=== PATIENT | female | born 1970 | race Caucasian/White ===

== ENCOUNTER 2018-05-31 17:27 | Inpatient (IN) | payer MEDICARE ==
[2018-05-31] MEDS ORDERED: methylPREDNISolone SOD SUCCI 125 MG/2 ML VIAL IV STA (17:46)
[2018-05-31] MEDS ORDERED: SODIUM CHLORIDE 0.9% 1,000 ML IV STA ×2 (17:46)
[2018-05-31] MEDS ORDERED: SODIUM CHLORIDE 0.9% 500 ML 500 ML IV STA (17:46)
[2018-05-31] MEDS ORDERED: AZITHROMYCIN 500 MG in SODIUM CHLORIDE 0.9% 250 ML IVPB STA (17:46)
[2018-05-31] MEDS ORDERED: IPRATROPIUM 0.5 MG/2.5 ML NEBU INHALATION STA (17:46)
[2018-05-31] MEDS ORDERED: ALBUTEROL NEBULIZED 2.5 MG/3 ML INHALATION STA (17:46)
[2018-05-31] MEDS ORDERED: IBUPROFEN 600 MG TAB PO STA (17:47)
[2018-05-31] MEDS ORDERED: ACETAMINOPHEN TAB 325 MG TAB PO STA (17:47)
--- NOTE | 2018-05-31 17:47 | ED ---
SOB HPI - General Chief Complaint: Shortness of Breath Stated Complaint: SARAH Source: patient, RN notes reviewed, old records reviewed Mode of arrival: EMS Limitations: no limitations - History of Present Illness Initial Comments: This is a 48-year-old female the ER for evaluation of fever cough congestion chest pain. No history of COPD, patient states her COPD is progressively worsening. Increased cough and congestion. No fevers, no known sick contacts. MD Complaint: shortness of breath, cough -: days(s) Severity: mild Severity scale (1-10): 3 Consistency: constant Improves With: rest Worsens With: exertion Known History Of: COPD Context: recent URI Associated Symptoms: fever, cough Treatments Prior to Arrival: none - Related Data Home Medications Medication Instructions Recorded Confirmed ARIPiprazole IM SYRINGE [Abilify 400 mg IM Q28D 05/31/18 05/31/18 Maintena Syringe] Albuterol Sulfate [Proair Hfa] 1 - 2 puff INHALATION RT-Q6H 05/31/18 05/31/18 FLUoxetine HCL [PROzac] 60 mg PO DAILY 05/31/18 05/31/18 Fluticasone/Salmeterol [Advair 1 inhalation PO RT-BID 05/31/18 05/31/18 250-50 Diskus] Ipratropium-Albuterol Nebulize 3 ml INHALATION RT-DAILY 05/31/18 05/31/18 [Duoneb 0.5 mg-3 mg/3 ml Soln] Levothyroxine Sodium [Synthroid] 25 mcg PO DAILY 05/31/18 05/31/18 Multivitamins, Thera [Multivitamin 1 tab PO DAILY 05/31/18 05/31/18 (formulary)] Prazosin HCl 2 mg PO BID 05/31/18 05/31/18 Prazosin [Minipress] 1 mg PO BID 05/31/18 05/31/18 Tiotropium 18 Mcg/Puff [Spiriva] 1 puff INHALATION RT-DAILY 05/31/18 05/31/18 busPIRone HCL 30 mg PO BID 05/31/18 05/31/18 Phenytoin Sodium Extended 200 mg PO BID 06/01/18 06/01/18 [Dilantin] hydrOXYzine PAMOATE 100 mg PO TID 06/01/18 06/01/18 Previous Rx's Medication Instructions Recorded Azithromycin [Zithromax] 500 mg PO DAILY@1800 #3 tab 06/03/18 predniSONE 10 mg PO DAILY #30 tab 06/03/18 Allergies Allergy/AdvReac Type Severity Reaction Status Date / Time levofloxacin [From Levaquin] Allergy Rash/Hives Verified 05/31/18 19:26 risperidone [From Risperdal] Allergy Rash/Hives Verified 05/31/18 19:26 Review of Systems ROS Statement: Those systems with pertinent positive or pertinent negative responses have been documented in the HPI. ROS Other: All systems not noted in ROS Statement are negative. Past Medical History Past Medical History: COPD History of Any Multi-Drug Resistant Organisms: None Reported Additional Past Surgical History / Comment(s): ovary removed Past Psychological History: PTSD Smoking Status: Current every day smoker Past Alcohol Use History: None Reported Past Drug Use History: None Reported General Exam Limitations: no limitations General appearance: alert, in no apparent distress, anxious Head exam: Present: atraumatic, normocephalic, normal inspection Eye exam: Present: normal appearance, PERRL, EOMI. Absent: scleral icterus, conjunctival injection, periorbital swelling ENT exam: Present: normal exam, mucous membranes moist Neck exam: Present: normal inspection. Absent: tenderness, meningismus, lymphadenopathy Respiratory exam: Present: respiratory distress, wheezes, decreased breath sounds, prolonged expiratory. Absent: rales, rhonchi, stridor Cardiovascular Exam: Present: regular rate, normal rhythm, normal heart sounds. Absent: systolic murmur, diastolic murmur, rubs, gallop, clicks GI/Abdominal exam: Present: soft, normal bowel sounds. Absent: distended, tenderness, guarding, rebound, rigid Extremities exam: Present: normal inspection, full ROM, normal capillary refill. Absent: tenderness, pedal edema, joint swelling, calf tenderness Back exam: Present: normal inspection Neurological exam: Present: alert, oriented X3, CN II-XII intact Psychiatric exam: Present: normal affect, normal mood Skin exam: Present: warm, dry, intact, normal color. Absent: rash Course Vital Signs 05/31/18 05/31/18 05/31/18 17:36 18:25 18:42 Temperature 100.1 F H Pulse Rate 84 84 Respiratory 24 20 Rate Blood Pressure 161/84 O2 Sat by Pulse 95 Oximetry 05/31/18 05/31/18 05/31/18 18:44 18:54 19:05 Temperature Pulse Rate 82 88 92 Respiratory 22 Rate Blood Pressure 159/88 O2 Sat by Pulse 99 Oximetry 05/31/18 05/31/18 05/31/18 19:14 19:21 19:50 Temperature 100.8 F H Pulse Rate 94 106 H Respiratory 22 Rate Blood Pressure 146/81 O2 Sat by Pulse 96 Oximetry 05/31/18 20:08 Temperature Pulse Rate 106 H Respiratory 20 Rate Blood Pressure 147/73 O2 Sat by Pulse 99 Oximetry - Reevaluation(s) Reevaluation #1: 05/31/18 20:15 Records reviewed, Reevaluation #2: 05/31/18 20:15 Worsening breathing even after breathing treatment, placed on BiPAP Medical Decision Making - Medical Decision Making Plan I female the ER was significant history of COPD, coming of COPD with fever. Patient be admitted for breathing treatments, monitoring of cardiopulmonary status - Lab Data Result diagrams: 05/31/18 18:58 05/31/18 18:56 Lab Results 05/31/18 05/31/18 05/31/18 Range/Units 18:45 18:56 18:58 WBC 6.6 (3.8-10.6) k/uL RBC 4.12 (3.80-5.40) m/uL Hgb 8.5 L (11.4-16.0) gm/dL Hct 38.3 (34.0-46.0) % MCV 93.1 (80.0-100.0) fL MCH 20.6 L (25.0-35.0) pg MCHC 22.2 L (31.0-37.0) g/dL RDW 14.5 (11.5-15.5) % Plt Count 173 (150-450) k/uL Neutrophils % 77 % Lymphocytes % 14 % Monocytes % 5 % Eosinophils % 1 % Basophils % 0 % Neutrophils # 5.1 (1.3-7.7) k/uL Lymphocytes # 0.9 L (1.0-4.8) k/uL Monocytes # 0.4 (0-1.0) k/uL Eosinophils # 0.1 (0-0.7) k/uL Basophils # 0.0 (0-0.2) k/uL PT (9.0-12.0) sec INR (<1.2) APTT (22.0-30.0) sec Sodium 134 L (137-145) mmol/L Potassium 4.8 (3.5-5.1) mmol/L Chloride 105 (98-107) mmol/L Carbon Dioxide 21 L (22-30) mmol/L Anion Gap 8 mmol/L BUN 13 (7-17) mg/dL Creatinine 0.63 (0.52-1.04) mg/dL Est GFR (CKD-EPI)AfAm >90 (>60 ml/min/1.73 sqM) Est GFR (CKD-EPI)NonAf >90 (>60 ml/min/1.73 sqM) Glucose 90 (74-99) mg/dL Estimated Ave Glu mg/dL Hemoglobin A1c (4.0-6.0) % Calcium 8.9 (8.4-10.2) mg/dL Magnesium 1.7 (1.6-2.3) mg/dL Total Bilirubin 0.4 (0.2-1.3) mg/dL AST 35 (14-36) U/L ALT 31 (9-52) U/L Alkaline Phosphatase 138 H (38-126) U/L Total Creatine Kinase (30-135) U/L CK-MB (CK-2) (0.0-2.4) ng/mL CK-MB (CK-2) Rel Index Troponin I (0.000-0.034) ng/mL NT-Pro-B Natriuret Pep pg/mL Total Protein 7.4 (6.3-8.2) g/dL Albumin 4.1 (3.5-5.0) g/dL Influenza Type A RNA Not Detected (Not Detectd) Influenza Type B (PCR) Not Detected (Not Detectd) 05/31/18 05/31/18 05/31/18 Range/Units 18:58 18:58 18:58 WBC (3.8-10.6) k/uL RBC (3.80-5.40) m/uL Hgb (11.4-16.0) gm/dL Hct (34.0-46.0) % MCV (80.0-100.0) fL MCH (25.0-35.0) pg MCHC (31.0-37.0) g/dL RDW (11.5-15.5) % Plt Count (150-450) k/uL Neutrophils % % Lymphocytes % % Monocytes % % Eosinophils % % Basophils % % Neutrophils # (1.3-7.7) k/uL Lymphocytes # (1.0-4.8) k/uL Monocytes # (0-1.0) k/uL Eosinophils # (0-0.7) k/uL Basophils # (0-0.2) k/uL PT 9.6 (9.0-12.0) sec INR 0.9 (<1.2) APTT 26.4 (22.0-30.0) sec Sodium (137-145) mmol/L Potassium (3.5-5.1) mmol/L Chloride (98-107) mmol/L Carbon Dioxide (22-30) mmol/L Anion Gap mmol/L BUN (7-17) mg/dL Creatinine (0.52-1.04) mg/dL Est GFR (CKD-EPI)AfAm (>60 ml/min/1.73 sqM) Est GFR (CKD-EPI)NonAf (>60 ml/min/1.73 sqM) Glucose (74-99) mg/dL Estimated Ave Glu mg/dL Hemoglobin A1c (4.0-6.0) % Calcium (8.4-10.2) mg/dL Magnesium (1.6-2.3) mg/dL Total Bilirubin (0.2-1.3) mg/dL AST (14-36) U/L ALT (9-52) U/L Alkaline Phosphatase (38-126) U/L Total Creatine Kinase 190 H (30-135) U/L CK-MB (CK-2) 3.2 H (0.0-2.4) ng/mL CK-MB (CK-2) Rel Index 1.7 Troponin I <0.012 (0.000-0.034) ng/mL NT-Pro-B Natriuret Pep 120 pg/mL Total Protein (6.3-8.2) g/dL Albumin (3.5-5.0) g/dL Influenza Type A RNA (Not Detectd) Influenza Type B (PCR) (Not Detectd) 05/31/18 Range/Units 18:58 WBC (3.8-10.6) k/uL RBC (3.80-5.40) m/uL Hgb (11.4-16.0) gm/dL Hct (34.0-46.0) % MCV (80.0-100.0) fL MCH (25.0-35.0) pg MCHC (31.0-37.0) g/dL RDW (11.5-15.5) % Plt Count (150-450) k/uL Neutrophils % % Lymphocytes % % Monocytes % % Eosinophils % % Basophils % % Neutrophils # (1.3-7.7) k/uL Lymphocytes # (1.0-4.8) k/uL Monocytes # (0-1.0) k/uL Eosinophils # (0-0.7) k/uL Basophils # (0-0.2) k/uL PT (9.0-12.0) sec INR (<1.2) APTT (22.0-30.0) sec Sodium (137-145) mmol/L Potassium (3.5-5.1) mmol/L Chloride (98-107) mmol/L Carbon Dioxide (22-30) mmol/L Anion Gap mmol/L BUN (7-17) mg/dL Creatinine (0.52-1.04) mg/dL Est GFR (CKD-EPI)AfAm (>60 ml/min/1.73 sqM) Est GFR (CKD-EPI)NonAf (>60 ml/min/1.73 sqM) Glucose (74-99) mg/dL Estimated Ave Glu mg/dL 103 Hemoglobin A1c 5.2 (4.0-6.0) % Calcium (8.4-10.2) mg/dL Magnesium (1.6-2.3) mg/dL Total Bilirubin (0.2-1.3) mg/dL AST (14-36) U/L ALT (9-52) U/L Alkaline Phosphatase (38-126) U/L Total Creatine Kinase (30-135) U/L CK-MB (CK-2) (0.0-2.4) ng/mL CK-MB (CK-2) Rel Index Troponin I (0.000-0.034) ng/mL NT-Pro-B Natriuret Pep pg/mL Total Protein (6.3-8.2) g/dL Albumin (3.5-5.0) g/dL Influenza Type A RNA (Not Detectd) Influenza Type B (PCR) (Not Detectd) - EKG Data -: EKG Interpreted by Me (EKG shows sinus rhythm rate of 98, NJ 202, QRS 84, QTC 441) - Radiology Data Radiology results: report reviewed (Chest x-rays negative for acute disease), image reviewed Critical Care Time Critical Care Time: Yes Total Critical Care Time: 31 Disposition Clinical Impression: COPD with acute exacerbation, Acute exacerbation of chronic obstructive airways disease Disposition: ADMITTED IP TO THIS HOSP Condition: Good Is patient prescribed a controlled substance at d/c from ED?: No
[2018-05-31] MEDS ORDERED: methylPREDNISolone SOD SUCCI 125 MG/2 ML VIAL IM ONE (18:29)
[2018-05-31] MEDS ORDERED: AZITHROMYCIN 500 MG TAB PO STA (18:36)
[2018-05-31] MEDS ORDERED: DEXAMETHASONE SOD PHOSPHATE 10 MG/ML 1 ML VIAL IM STA (18:36)
--- NOTE | 2018-05-31 18:57 | XR ---
EXAMINATION TYPE: XR chest 2V DATE OF EXAM: 05/31/2018 COMPARISON: 11/03/2009 HISTORY: Chest pain TECHNIQUE: Frontal and lateral views of the chest are obtained. FINDINGS: There is slight blunting of right costophrenic angle. Heart size is normal. There is no he art failure. There is some bulkiness of the pulmonary [place]. Bony thorax is intact. IMPRESSION: New small right pleural effusion or pleural reaction compared to old exam. There is new Mild bronchial adenopathy. No heart failure.
[2018-05-31 19:17] LABS: Basophils % (A) 0 %; Eosinophils # (A) 0.1 k/uL (0-0.7); Eosinophils % (A) 1 %; HCT 38.3 % (34.0-46.0); HGB 8.5 gm/dL (11.4-16.0); Lymphocytes # (A) 0.9 k/uL (1.0-4.8); Lymphocytes % (A) 14 %; MCH 20.6 pg (25.0-35.0); MCHC 22.2 g/dL (31.0-37.0); MCV 93.1 fL (80.0-100.0); Mean Platelet Volume 7.8; Monocytes # (A) 0.4 k/uL (0-1.0); Monocytes % (A) 5 %; Neutrophils # (A) 5.1 k/uL (1.3-7.7); Neutrophils % (A) 77 %; Platelet Count 173 k/uL (150-450); RBC 4.12 m/uL (3.80-5.40); RDW 14.5 % (11.5-15.5); WBC 6.6 k/uL (3.8-10.6)
[2018-05-31 19:18] LABS: INR 0.9 (<1.2); Partial Thromboplastin Time 26.4 sec (22.0-30.0); Prothrombin Time 9.6 sec (9.0-12.0)
[2018-05-31 19:22] LABS: ALT 31 U/L (9-52); AST 35 U/L (14-36); Albumin 4.1 g/dL (3.5-5.0); Alkaline Phosphatase 138 U/L (38-126); Anion Gap 8 mmol/L; Blood Urea Nitrogen 13 mg/dL (7-17); Calcium 8.9 mg/dL (8.4-10.2); Carbon Dioxide 21 mmol/L (22-30); Chloride 105 mmol/L (98-107); Glucose 90 mg/dL (74-99); Magnesium 1.7 mg/dL (1.6-2.3); Sodium 134 mmol/L (137-145); Total Bilirubin 0.4 mg/dL (0.2-1.3); Total Protein 7.4 g/dL (6.3-8.2)
[2018-05-31 19:25] LABS: Potassium 4.8 mmol/L (3.5-5.1)
[2018-05-31 19:26] LABS: Creatine Kinase 190 U/L (30-135)
[2018-05-31 19:39] LABS: Creatine Kinase MB 3.2 ng/mL (0.0-2.4); Troponin I <0.012 ng/mL (0.000-0.034)
[2018-05-31] MEDS: SODIUM CHLORIDE 0.9% 1,000 ML IV SCH (20:34)
[2018-05-31] MEDS ORDERED: PRAZOSIN 1 MG CAP PO SCH ×2 (22:30)
[2018-05-31] MEDS ORDERED: PHENYTOIN SODIUM EXTENDED 100 MG CAP PO SCH (23:15)
[2018-05-31] MEDS ORDERED: hydrOXYzine PAMOATE 25 MG CAP PO SCH ×2 (23:15→23:20)
[2018-06-01] MEDS ORDERED: methylPREDNISolone SOD SUCCI 125 MG/2 ML VIAL IV SCH
[2018-06-01] MEDS: FORMOTEROL FUMARATE 20 MCG/2 ML NEBU INHALATION SCH ×3 (00:02→21:11)
[2018-06-01] MEDS: BUDESONIDE 1 MG/2 ML NEBU INHALATION SCH ×3 (00:02→21:11)
[2018-06-01] MEDS: IPRATROPIUM-ALBUTEROL 3 ML NEB INHALATION PRN ×2 (00:02→03:46)
[2018-06-01] MEDS: PRAZOSIN 1 MG CAP PO SCH ×5 (00:03→20:41)
[2018-06-01] MEDS: methylPREDNISolone SOD SUCCI 40 MG/ML 1 ML VIAL IV SCH ×2 (00:03→08:35)
[2018-06-01] MEDS: busPIRone HCl 10 MG TAB PO SCH ×3 (00:03→20:42)
[2018-06-01] MEDS ORDERED: hydrOXYzine PAMOATE 25 MG CAP PO ONE (00:15)
[2018-06-01] MEDS ORDERED: PHENYTOIN SODIUM EXTENDED 100 MG CAP PO ONE (00:15)
[2018-06-01] MEDS: LEVOTHYROXINE 25 MCG TAB PO SCH (06:10)
[2018-06-01 06:55] LABS: Glucose,Whole Blood 131 mg/dL (75-99)
[2018-06-01] MEDS: IPRATROPIUM-ALBUTEROL 3 ML NEB INHALATION SCH ×5 (08:07→23:39)
[2018-06-01] MEDS: SODIUM CHLORIDE 0.9% 1,000 ML IV SCH ×2 (08:16→20:37)
[2018-06-01] MEDS: ACETAMINOPHEN TAB 325 MG TAB PO PRN (08:33)
[2018-06-01] MEDS: MULTIVITAMINS, THERA 1 EACH TAB PO SCH (08:35)
[2018-06-01] MEDS: ENOXAPARIN 40 MG/0.4 ML SYRINGE SQ SCH (08:35)
[2018-06-01] MEDS: FLUoxetine HCL 20 MG CAP PO SCH (08:35)
[2018-06-01] MEDS: PHENYTOIN SODIUM EXTENDED 100 MG CAP PO SCH ×2 (08:36→20:42)
[2018-06-01] MEDS ORDERED: FLUTICASONE 50MCG/SPRAY NASAL 16GM EA NOSTRIL PRN (08:36)
[2018-06-01] MEDS: INSULIN ASPART 100 UNIT/ML 1 ML 10 ML VIAL SQ SCH ×3 (08:37→17:32)
[2018-06-01] MEDS ORDERED: ENOXAPARIN 40 MG/0.4 ML SYRINGE SQ SCH (09:00)
[2018-06-01 11:17] LABS: Glucose,Whole Blood 77 mg/dL (75-99)
[2018-06-01] MEDS: methylPREDNISolone SOD SUCCI 125 MG/2 ML VIAL IV SCH ×2 (11:28→18:28)
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
[2018-06-01] MEDS: hydrOXYzine PAMOATE 25 MG CAP PO SCH ×2 (14:51→21:50)
[2018-06-01] MEDS: ALPRAZolam 0.25 MG TAB PO PRN (14:52)
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
[2018-06-01 17:21] LABS: Glucose,Whole Blood 227 mg/dL (75-99)
[2018-06-01] MEDS: AZITHROMYCIN 500 MG TAB PO SCH (17:37)
[2018-06-01 17:45] LABS: Hemoglobin A1C 5.2 % (4.0-6.0)
[2018-06-01 19:57] LABS: ABG Base Excess -0.6 mmol/L; ABG HCO3 24 mmol/L (21-25); ABG Oxygen Saturation 89.1 % (94-97); ABG PCO2 38 mmHg (35-45); ABG PH 7.41 (7.35-7.45); ABG TCO2 25 mmol/L (19-24)
[2018-06-01 19:58] LABS: Glucose,Whole Blood 87 mg/dL (75-99)
[2018-06-01 20:04] LABS: ABG PO2 59 mmHg (83-108)
[2018-06-01] MEDS ORDERED: FUROSEMIDE 10 MG/ML 4 ML VIAL IV STA (20:12)
--- NOTE | 2018-06-01 20:26 | HP ---
HISTORY AND PHYSICAL DATE OF ADMISSION: 05/31/2018 DATE OF SERVICE: 06/01/2018 PRESENTING COMPLAINT: Short of breath. HISTORY OF PRESENTING COMPLAINT: This is a 48-year-old patient who follows with Dr. Wells. Chronic stable medical conditions include seizure, anxiety, depression, PTSD. Patient states she became short of breath, more so in one day, developed a cough, was congested, without much sputum production, sweating, tired. No fevers. Tired, rundown, wheezing. She was felt to have COPD exacerbation, admitted for the same. Patient was started on steroids and bronchodilators, with which she did feel a bit better. Pulmonary, Dr. Root, was consulted, who saw the patient earlier today. Because of extravasation, CT scan could not be done fully. Patient is rather anxious. REVIEW OF SYSTEMS: CONSTITUTIONAL: None. HEENT: None. RESPIRATORY: As above. CARDIOVASCULAR: None. GASTROINTESTINAL: None. GENITOURINARY: None. MUSCULOSKELETAL: Aches and pains in different joints. DERMATOLOGICAL: None. HEMATOLOGICAL: None. LYMPHATICS: None. PSYCHIATRY: Anxious. NEUROLOGICAL: None. PAST MEDICAL HISTORY: 1. COPD. 2. Seizure disorder. PAST SURGICAL HISTORY: Ovary removed. PSYCH HISTORY: Anxiety, depression, PTSD. SOCIAL HISTORY: Patient smoked for about 20 years. Lives alone. Doing E cigarettes. Denies use of recreational drugs or alcohol. FAMILY HISTORY: Reviewed; noncontributory to presentation. HOME MEDICATIONS: 1. Hydroxyzine 100 mg p.o. t.i.d. 2. Dilantin 200 mg b.i.d. 3. Multivitamin 1 tablet p.o. daily. 4. Synthroid 25 mcg a day. 5. DuoNeb 3 mL daily. 6. Advair 250/50 one puff b.i.d. 7. Spiriva 1 puff daily. 8. Albuterol, ProAir 1 or 2 puffs q.6 p.r.n. 9. Abilify 400 mg IM every 28 days. 10.Prozac 60 mg a day. 11.Buspirone 30 mg b.i.d. 12.Prazosin 2 mg b.i.d. and 1 mg p.o. b.i.d. ALLERGIES: LEVAQUIN and RISPERDAL. PHYSICAL EXAMINATION: VITAL SIGNS ON PRESENTATION: Temperature 100.1, pulse 54, respiration 24, blood pressure 161/84, pulse ox 95% on room air. GENERAL APPEARANCE: Average build. Sitting up. Anxious-appearing. EYES: Pupils equal. Conjunctivae normal. HEENT: External appearance of nose and ears normal. Oral cavity normal. NECK: JVD not raised. Mass not palpable. RESPIRATORY: Effort increased. LUNGS: Diminished breath sounds. Prolonged expiration and wheezing. CARDIOVASCULAR: First and second sounds normal. No edema. ABDOMEN: Soft, non-tender. Liver and spleen not palpable. LYMPHATIC: No lymph node palpable in neck or axillae. PSYCHIATRY: Alert and oriented x3. Mood and affect anxious-appearing. NEUROLOGICAL: Pupils equal. Cranial nerves grossly intact. Power and sensation grossly intact. INVESTIGATIONS: Reviewed in the clinical context. White count 6.6, hemoglobin 8.5, platelets 173. Potassium 4.8, BUN 30, creatinine 0.63. ProBNP was 120. Influenza A and B negative. Chest CTA shows moderate emphysematous changes, multifocal areas of reticulation and opacity; some prominent lymph nodes, healed fractures of the ribs are noted. EKG tracing, personally reviewed by me, shows some flipped T-waves. Chest x-ray film, personally reviewed by me, shows questionable hilar prominence; no obvious infiltrates otherwise. ASSESSMENT: 1. Acute chronic obstructive pulmonary disease exacerbation in an ex-smoker. 2. Chronic seizure disorder. 3. Anxiety/depression not otherwise specified. 4. Post-traumatic stress disorder. 5. Abnormal CT scan of the chest without improper contrast. Will try to repeat the same. Hence I cannot explain the findings; wonder if it is simple pneumonitis, given that patient had a fever earlier. 6. Acute pneumonitis; could be viral. PLAN: Patient is put on nebulized bronchodilators, IV and inhaled steroids. Home medications are resumed. Patient was seen by Dr. Root earlier today. May consider repeating a CT scan tomorrow if patient does not improve. MMODL / IJN: [id number] /
[2018-06-01] MEDS: FLUTICASONE 50MCG/SPRAY NASAL 16GM EA NOSTRIL PRN (20:40)
[2018-06-02] MEDS: methylPREDNISolone SOD SUCCI 125 MG/2 ML VIAL IV SCH ×4 (00:10→19:58)
[2018-06-02] MEDS: FLUTICASONE 50MCG/SPRAY NASAL 16GM EA NOSTRIL PRN ×2 (00:10→06:17)
[2018-06-02] MEDS: SODIUM CHLORIDE 0.9% 1,000 ML IV SCH ×3 (00:11→23:38)
[2018-06-02] MEDS: IPRATROPIUM-ALBUTEROL 3 ML NEB INHALATION SCH ×5 (03:19→19:03)
[2018-06-02] MEDS: LEVOTHYROXINE 25 MCG TAB PO SCH (06:19)
[2018-06-02 06:41] LABS: Glucose,Whole Blood 162 mg/dL (75-99)
[2018-06-02] MEDS: FORMOTEROL FUMARATE 20 MCG/2 ML NEBU INHALATION SCH ×2 (07:20→19:15)
[2018-06-02] MEDS: BUDESONIDE 1 MG/2 ML NEBU INHALATION SCH ×2 (07:20→19:03)
[2018-06-02] MEDS: hydrOXYzine PAMOATE 25 MG CAP PO SCH ×3 (07:55→21:57)
[2018-06-02] MEDS: busPIRone HCl 10 MG TAB PO SCH ×2 (07:56→21:55)
[2018-06-02] MEDS: FLUoxetine HCL 20 MG CAP PO SCH (07:56)
[2018-06-02] MEDS: ACETAMINOPHEN TAB 325 MG TAB PO PRN ×2 (07:57→17:40)
[2018-06-02] MEDS: ENOXAPARIN 40 MG/0.4 ML SYRINGE SQ SCH (07:57)
[2018-06-02] MEDS: PHENYTOIN SODIUM EXTENDED 100 MG CAP PO SCH ×2 (07:58→21:56)
[2018-06-02] MEDS: PRAZOSIN 1 MG CAP PO SCH ×4 (07:58→21:57)
[2018-06-02] MEDS: INSULIN ASPART 100 UNIT/ML 1 ML 10 ML VIAL SQ SCH ×3 (07:59→20:25)
--- NOTE | 2018-06-02 10:04 | ECHOF ---
Referral Reason:pericardial effusion MEASUREMENTS -------- HEIGHT: 160.0 cm WEIGHT: 63.5 kg BP: 116/68 RVIDd: 2.8 cm (< 3.3) IVSd: 1.0 cm (0.6 - 1.1) LVIDd: 4.7 cm (3.9 - 5.3) LVPWd: 1.2 cm (0.6 - 1.1) IVSs: 1.3 cm LVIDs: 3.0 cm LVPWs: 1.4 cm LA Diam: 3.1 cm (2.7 - 3.8) LAESV Index (A-L): 17.09 ml/m Ao Diam: 2.7 cm (2.0 - 3.7) AV Cusp: 1.9 cm (1.5 - 2.6) MV EXCURSION: 16.594 mm (> 18.000) MV EF SLOPE: 29 mm/s (70 - 150) EPSS: 0.4 cm MV E Jarocho: 0.98 m/s MV DecT: 385 ms MV A Jarocho: 1.19 m/s MV E/A Ratio: 0.83 FINDINGS -------- Sinus rhythm. This was a technically good study. The left ventricular size is normal. Left ventricular wall thickness is normal. Overall left vent ricular systolic function is normal with, an EF between 60 - 65 %. The right ventricle is normal in size. Normal LA size by volume 22+/-6 ml/m2. The right atrium is normal in size. The aortic valve is trileaflet and appears structurally normal. The mitral valve is normal. The tricuspid valve appears structurally normal. The pulmonic valve was not well visualized. The aortic root size is normal. The inferior vena cava is dilated with poor inspiratory collapse which is consistent with estimated r ight atrial pressure of 20 mmHg. There is a small, generalized pericardial effusion present. CONCLUSIONS -------- 1. Sinus rhythm. 2. This was a technically good study. 3. The left ventricular size is normal. 4. Left ventricular wall thickness is normal. 5. Overall left ventricular systolic function is normal with, an EF between 60 - 65 %. 6. The right ventricle is normal in size. 7. Normal LA size by volume 22+/-6 ml/m2. 8. The right atrium is normal in size. 9. The aortic valve is trileaflet and appears structurally normal. 10. The mitral valve is normal. 11. The tricuspid valve appears structurally normal. 12. The pulmonic valve was not well visualized. 13. The aortic root size is normal. 14. The inferior vena cava is dilated with poor inspiratory collapse which is consistent with estimat ed right atrial pressure of 20 mmHg. 15. There is a small, generalized pericardial effusion present. ADVERTISING SPECIALIST: Joanne Rothman RDCS
[2018-06-02 12:05] LABS: Glucose,Whole Blood 102 mg/dL (75-99)
[2018-06-02] MEDS: MULTIVITAMINS, THERA 1 EACH TAB PO SCH (12:38)
[2018-06-02] MEDS: NAPROXEN 250 MG TAB PO PRN ×2 (12:39→21:58)
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
[2018-06-02 17:18] LABS: Glucose,Whole Blood 79 mg/dL (75-99)
[2018-06-02] MEDS: AZITHROMYCIN 500 MG TAB PO SCH (19:58)
[2018-06-02 20:43] LABS: Glucose,Whole Blood 106 mg/dL (75-99)
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
[2018-06-03] MEDS: FLUTICASONE 50MCG/SPRAY NASAL 16GM EA NOSTRIL PRN ×2 (00:16→08:40)
[2018-06-03] MEDS: ACETAMINOPHEN TAB 325 MG TAB PO PRN ×2 (00:28→08:50)
[2018-06-03] MEDS: IPRATROPIUM-ALBUTEROL 3 ML NEB INHALATION SCH ×6 (02:45→18:15)
[2018-06-03] MEDS: LEVOTHYROXINE 25 MCG TAB PO SCH (05:35)
[2018-06-03 06:51] LABS: Glucose,Whole Blood 69 mg/dL (75-99)
[2018-06-03 07:08] LABS: Glucose,Whole Blood 108 mg/dL (75-99)
[2018-06-03] MEDS: BUDESONIDE 1 MG/2 ML NEBU INHALATION SCH ×2 (07:20→20:30)
[2018-06-03] MEDS: FORMOTEROL FUMARATE 20 MCG/2 ML NEBU INHALATION SCH ×2 (07:20→20:38)
[2018-06-03] MEDS: busPIRone HCl 10 MG TAB PO SCH ×2 (08:37→21:07)
[2018-06-03] MEDS: PHENYTOIN SODIUM EXTENDED 100 MG CAP PO SCH ×2 (08:37→21:06)
[2018-06-03] MEDS: methylPREDNISolone SOD SUCCI 40 MG/ML 1 ML VIAL IV SCH ×2 (08:37→21:21)
[2018-06-03] MEDS: PRAZOSIN 1 MG CAP PO SCH ×4 (08:37→21:12)
[2018-06-03] MEDS: FLUoxetine HCL 20 MG CAP PO SCH (08:38)
[2018-06-03] MEDS: hydrOXYzine PAMOATE 25 MG CAP PO SCH ×3 (08:38→21:05)
[2018-06-03] MEDS: INSULIN ASPART 100 UNIT/ML 1 ML 10 ML VIAL SQ SCH ×3 (08:39→17:30)
[2018-06-03] MEDS: ENOXAPARIN 40 MG/0.4 ML SYRINGE SQ SCH (08:39)
[2018-06-03] MEDS: ALPRAZolam 0.25 MG TAB PO PRN (08:50)
[2018-06-03 11:49] LABS: Glucose,Whole Blood 97 mg/dL (75-99)
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
[2018-06-03] MEDS: MULTIVITAMINS, THERA 1 EACH TAB PO SCH (13:12)
[2018-06-03] MEDS: NAPROXEN 250 MG TAB PO PRN ×2 (13:12→16:54)
[2018-06-03 15:46] VITALS: TEMP 97.7
[2018-06-03] MEDS: SODIUM CHLORIDE 0.9% 1,000 ML IV SCH (17:08)
[2018-06-03] MEDS: AZITHROMYCIN 500 MG TAB PO SCH (17:14)
[2018-06-03 17:29] LABS: Glucose,Whole Blood 101 mg/dL (75-99)
[2018-06-03 19:19] VITALS: BP 120/70; RESP 19
[2018-06-03] MEDS: IPRATROPIUM-ALBUTEROL 3 ML NEB INHALATION PRN (20:30)
[2018-06-03 20:32] LABS: Glucose,Whole Blood 111 mg/dL (75-99)
[2018-06-03 20:38] VITALS: PULSE 80
== END 2018-06-03 21:28 | disposition home or self-care (01) | DRG 190 ==
LOC: EC 17:27 → 4SSUR 20:15
PROVIDERS: ADMIT Hospitalist; ATTEND Hospitalist
DX: J43.9 Emphysema, unspecified (principal); J12.9 Viral pneumonia, unspecified; E87.1 Hypo-osmolality and hyponatremia; I31.3 Pericardial effusion (noninflammatory); D64.9 Anemia, unspecified; E03.9 Hypothyroidism, unspecified; F17.290 Nicotine dependence, other tobacco product, uncomplicated; F32.9 Major depressive disorder, single episode, unspecified; F43.10 Post-traumatic stress disorder, unspecified; G40.909 Epilepsy, unspecified, not intractable, without status epilepticus; Z79.890 Hormone replacement therapy; Z79.899 Other long term (current) drug therapy; Z91.410 Personal history of adult physical and sexual abuse; Z88.1 Allergy status to other antibiotic agents
CPT/HCPCS: 36415; 36600; 71046; 71275; 80053; 82550; 82553; 82805; 83036; 83735; 83880; 84484; 85025; 85610; 85730; 87040; 87502; 93005; 93306; 94640; 94644; 94660; 94760; 96372; 99291

== ENCOUNTER → 2018-09-07 | Outpatient (CLI) | payer MEDICARE ==
--- NOTE | 2018-09-07 08:39 | CT ---
EXAMINATION TYPE: CT chest w con DATE OF EXAM: 09/07/2018 COMPARISON: 06/01/2018 HISTORY: Mediastinal adenopathy CT DLP: 362 mGycm. Automated Exposure Control for Dose Reduction was Utilized. TECHNIQUE: CT scan of the thorax is performed following with IV Contrast, patient injected with 100 ml mL of Isovue 300. FINDINGS: LUNGS: Mild to moderate background centrilobular emphysematous change is again noted. Bandlike scarri ng in the anterior right upper lobe is seen. Within the anterior right lower lobe there remains a nod ule measuring approximately 1.0 x 0.7 cm with elongated peripheral bandlike fibrosis surrounding this . No increase in size from the prior of 06/01/2018. MEDIASTINUM: There are no greater than 1 cm hilar or mediastinal lymph nodes. The previously seen mil dly enlarged mediastinal lymph nodes have improved in caliber from the prior with the subcarinal lymp h node now measuring 0.7 cm in short axis and previously measuring 1.6 cm in short axis. The right hi lar lymph nodes previously measured 1.1 cm in short axis and now measure 0.8 cm. Strand-like density in the superior mediastinum likely represents a small amount of residual thymic tissue. Coronary calc ifications are seen at the ostia of the left main coronary artery. Trace pericardial fluid is seen in feriorly and anteriorly. Heart size is upper limits of normal. OTHER: There is redemonstration of a nonunited callused healed rib fractures of the left eighth throu gh 11th ribs and right rib 7. Old fracture deformity is also seen of the lateral third right rib. Jacinto y mild degenerative changes of the spine are seen. IMPRESSION: 1. Resolution the previously seen mediastinal adenopathy, which was likely reactive on the prior. 2. Similar appearing right lower lobe pulmonary nodule with surrounding bandlike scarring. Surveillan ce is recommended for the nodular portion to ensure no interval growth with follow-up CT recommended in 6 months given the 1.1 cm size. 3. Small pericardial effusion, decreased in the prior. 4. Redemonstration nonunited left-sided rib fractures and old fracture deformities of a few right rib s.
== END | disposition home or self-care (01) ==
LOC: RADCTMAIN 06:19
PROVIDERS: ATTEND Internal Medicine
DX: I31.3 Pericardial effusion (noninflammatory) (principal); S22.32XK Fracture of one rib, left side, subsequent encounter for fracture with nonunion
CPT/HCPCS: 71260; Q9967

== ENCOUNTER → 2019-04-09 | Outpatient (CLI) | payer MEDICARE, OTHER ==
--- NOTE | 2019-04-09 08:24 | CT ---
EXAMINATION TYPE: CT chest w con DATE OF EXAM: 04/09/2019 COMPARISON: 09/07/2018 HISTORY: abnormal prior study CT DLP: 455 mGycm Automated exposure control for dose reduction was used. CONTRAST: CT scan of the chest is performed with IV Contrast, patient injected with 80 mL of Isovue 300. FINDINGS: LUNGS: Mild to moderate centrilobular emphysema noted. Bandlike scarring anterior right upper lobe ag ain noted. Pleural-based nodular density right lower lobe measures 1.1 cm versus 1.1 cm previously. T his is associated bandlike scarring. MEDIASTINUM: There are no greater than 1 cm hilar or mediastinal lymph nodes. No pericardial effusi on is seen. Thoracic aorta is of normal caliber. The heart is not enlarged. UPPER ABDOMEN: Cholelithiasis noted. OTHER: Healed left-sided rib fractures. IMPRESSION: 1. Stable 1.1 cm right lower lobe pleural-based nodule associated with the bandlike scarring. Stabili ty over a two-year timeframe should be documented radiographically. 2. Centrilobular emphysema. 3. Cholelithiasis.
== END | disposition home or self-care (01) ==
LOC: RADCTMAIN 06:58
PROVIDERS: ATTEND Internal Medicine
DX: J43.2 Centrilobular emphysema (principal); R91.1 Solitary pulmonary nodule
CPT/HCPCS: 71260

== ENCOUNTER → 2020-06-30 | Outpatient (CLI) | payer MEDICARE, OTHER ==
--- NOTE | 2020-06-30 10:59 | CT ---
EXAMINATION TYPE: CT chest w con DATE OF EXAM: 06/30/2020 COMPARISON: 04/09/2019 and is fast brain narrowing holes are HISTORY: Lung Nodule CT DLP: 366 mGycm Automated exposure control for dose reduction was used. CONTRAST: CT scan of the chest is performed with IV Contrast, patient injected with 100 mL of Isovue 300. FINDINGS: LUNGS: Mild to moderate centrilobular emphysema noted. Bandlike scarring anterior right upper lobe ag ain noted. Pleural-based nodular density right lower lobe measures 1.1 cm versus 1.1 cm previously. T his is associated bandlike scarring. MEDIASTINUM: There are no greater than 1 cm hilar or mediastinal lymph nodes. No pericardial effusi on is seen. Thoracic aorta is of normal caliber. The heart is not enlarged. UPPER ABDOMEN: Cholelithiasis. OTHER: Multiple fractured ribs are seen. IMPRESSION: 1. Stable pulmonary nodularity associated with scarring. 2. Centrilobular emphysema unchanged. 3. Cholelithiasis.
== END | disposition home or self-care (01) ==
LOC: RADCTMAIN 08:54
PROVIDERS: ATTEND Internal Medicine
DX: J43.2 Centrilobular emphysema (principal); K80.20 Calculus of gallbladder without cholecystitis without obstruction; R91.8 Other nonspecific abnormal finding of lung field
CPT/HCPCS: 71260; Q9967